=== PATIENT | female | born 1945 | race Caucasian/White ===

== ENCOUNTER 2018-12-03 08:33 | Day surgery (SDC) | payer MEDICARE, BC ==
[~2018-12-03] VITALS: Ht 170.2 cm; Wt 72.0 kg
[~2018-12-03 08:33] MED LIST: BUPIVACAINE/PF-EPI 0.5% 1:200K ONE; FENTANYL PF 250 MCG/5ML ONE; LIDOCAINE 1%-EPI 1:100K, 20ML ONE; MIDAZOLAM 1 MG/ML, 2ML ONE
[2018-12-03 08:59] VITALS: BP 154/75
[2018-12-03] MEDS ORDERED: LACTATED RINGERS 1,000 ML IV SCH (09:09)
[2018-12-03] MEDS ORDERED: BUSP5POW PO (09:49)
[2018-12-03] MEDS ORDERED: ALBU8.5H8 INH (09:49)
[2018-12-03] MEDS ORDERED: FURO20TA3 PO (09:49)
[2018-12-03] MEDS ORDERED: IBAN150T15 PO (09:49)
[2018-12-03] MEDS ORDERED: ISOS60TA36 PO (09:49)
[2018-12-03] MEDS ORDERED: VENL150C6 PO (09:49)
[2018-12-03] MEDS ORDERED: OMEG1CAP34 PO (09:49)
[2018-12-03] MEDS ORDERED: LEVO88TA4 PO (09:49)
[2018-12-03] MEDS ORDERED: NITR0.4T28 SL (09:49)
[2018-12-03] MEDS ORDERED: FLUT1DIS3 INH (09:49)
[2018-12-03] MEDS ORDERED: TELM40TA4 PO (09:49)
[2018-12-03] MEDS ORDERED: SUMA100T4 PO (09:49)
[2018-12-03 09:52] LABS: ALANINE AMINOTRANSFERASE 28 U/L (12-78); ALBUMIN 3.5 g/dL (3.4-5.0); ANION GAP 5 mmol/L (5-15); CALCIUM 8.5 mg/dL (8.5-10.1); CHLORIDE 114 mmol/L (98-107); CREATININE 0.67 mg/dL (0.55-1.02)
[2018-12-03 09:54] LABS: ALKALINE PHOSPHATASE 75 U/L (45-117); BILIRUBIN,TOTAL 0.4 mg/dL (0.2-1.0); TOTAL PROTEIN 6.6 g/dL (6.4-8.2)
[2018-12-03] MEDS ORDERED: GABAPENTIN 300 MG CAPSULE PO ONE (10:00)
[2018-12-03] MEDS ORDERED: ACETAMINOPHEN 500 MG TABLET PO ONE (10:00)
[2018-12-03] MEDS ORDERED: DEXAMETHASONE 4 MG/ML, 1ML ONE (11:41)
[2018-12-03] MEDS ORDERED: ONDANSETRON 2MG/ML, 2ML ONE (11:41)
[2018-12-03] MEDS ORDERED: CEFAZOLIN 1,000 MG ONE (11:41)
[2018-12-03] MEDS ORDERED: PROPOFOL 10 MG/ML, 20ML ONE (11:41)
[2018-12-03] MEDS ORDERED: ROCURONIUM 10 MG/ML,10ML ONE (11:41)
[2018-12-03] MEDS ORDERED: SUCCINYLCHOLINE 20 MG/ML, 10ML ONE (11:41)
[2018-12-03] MEDS ORDERED: MEPERIDINE/PF 25MG/0.5ML IVPush PRN (12:00)
[2018-12-03] MEDS ORDERED: LABETALOL 5MG/ML, 20ML IV PRN (12:00)
[2018-12-03] MEDS ORDERED: ALBUTEROL SULFATE 2.5 MG/3 ML NPPB PRN (12:00)
[2018-12-03] MEDS ORDERED: METOCLOPRAMIDE 5 MG/ML, 2ML IV PRN (12:00)
[2018-12-03] MEDS ORDERED: OXYcodone 5 MG/5 ML ORAL.SOL UDC PO PRN (12:00)
[2018-12-03] MEDS ORDERED: PROMETHAZINE 25 MG/ML, 1ML IV PRN (12:00)
[2018-12-03] MEDS ORDERED: hydrALAzine 20 MG/ML, 1ML IV PRN (12:00)
[2018-12-03] MEDS ORDERED: KETOROLAC 30 MG/1 ML IV PRN (12:00)
[2018-12-03] MEDS ORDERED: ONDANSETRON 2MG/ML, 2ML IVPush PRN (12:00)
[2018-12-03] MEDS ORDERED: HYDROmorphone 2 MG/ML, 1ML ONE (12:24)
[2018-12-03] MEDS ORDERED: FENTANYL PF 100 MCG/2ML ONE (12:24)
[2018-12-03] MEDS ORDERED: OXYcodone 5 MG/5 ML ORAL.SOL UDC ONE (12:25)
[2018-12-03] MEDS: HYDROmorphone 1 MG/ML, 1ML INJ IV PRN ×2 (12:29→12:46)
[2018-12-03] MEDS: FENTANYL PF 100 MCG/2ML IV PRN ×2 (12:29→12:36)
== END 2018-12-03 15:10 | disposition home or self-care (01) ==
LOC: OUT 08:33
PROVIDERS: ATTEND Orthopaedic Surgery
DX: S83.281A Other tear of lateral meniscus, current injury, right knee, initial encounter (principal); S83.231A Complex tear of medial meniscus, current injury, right knee, initial encounter; M94.261 Chondromalacia, right knee; I25.10 Atherosclerotic heart disease of native coronary artery without angina pectoris; I10 Essential (primary) hypertension; G47.33 Obstructive sleep apnea (adult) (pediatric); Z88.8 Allergy status to other drugs, medicaments and biological substances; X58.XXXA Exposure to other specified factors, initial encounter; Y93.89 Activity, other specified; Y92.89 Other specified places as the place of occurrence of the external cause; Y99.8 Other external cause status; Z88.5 Allergy status to narcotic agent; Z91.013 Allergy to seafood; Z87.891 Personal history of nicotine dependence
CPT/HCPCS: 29880; 36415; 80053; 93005; J0330; J0690; J1100; J1170; J2250; J2405; J2704; J3010; J3490; J7120